=== PATIENT | female | born 1990 | race Caucasian/White ===

== ENCOUNTER 2018-02-17 18:41 | Emergency (ER) | payer BC ==
[~2018-02-17] VITALS: Ht 165.1 cm; Wt 58.1 kg
[2018-02-17] MEDS ORDERED: IBUPROFEN 600600 M1 PO (19:44)
[2018-02-17 20:06] VITALS: BP 110/65
== END 2018-02-17 20:07 | disposition home or self-care (01) ==
LOC: ER 18:41
DX: S90.31XA Contusion of right foot, initial encounter (principal); W20.8XXA Other cause of strike by thrown, projected or falling object, initial encounter; Y92.89 Other specified places as the place of occurrence of the external cause; Y93.89 Activity, other specified; Y99.8 Other external cause status